=== PATIENT | male | born 1950 | race Caucasian/White ===

== ENCOUNTER → 2021-01-24 | Outpatient (CLI) | payer OTHER, MEDICARE ==
[~2021-01-24] MED LIST: ALLEGRA ALLERG180 MG PO; ATORVASTATIN CA80 MG PO; CIALIS5 MG PO; LEVEMIR FL100 UNIT/2 SUBQ; LISINOPRIL10 MG PO; METFORMIN HCL500 M3 PO; MIRALAX119 GM PO; NOVOLOG100 UNIT/2 SUBQ; PAIN RELIEF500 M1 PO; REPLENS6.7 GM PO; TRAZODONE HCL50 MG PO; VITAMIN D325 MC5 PO; ZINC50 M1 PO
[2021-01-24 12:44] LABS: ALBUMIN 3.7 g/dL (3.4-5.0); CREATININE 0.8 mg/dL (0.7-1.3); POTASSIUM 4.4 mmol/L (3.5-5.1)
[2021-01-24 12:48] LABS: URINE BILIRUBIN NEGATIVE (Negative); URINE BLOOD 1+ (Negative); URINE CLARITY CLEAR; URINE COLOR YELLOW; URINE GLUCOSE-RANDOM* TRACE (Negative); URINE KETONES NEGATIVE (Negative); URINE LEUKOCYTES-REFLEX NEGATIVE (Negative); URINE NITRITE-REFLEX NEGATIVE (Negative); URINE PROTEIN (DIPSTICK) NEGATIVE (Negative); URINE SPECIFIC GRAVITY <= 1.005 (1.005-1.035); URINE UROBILINOGEN 0.2 E.U./dl (0.2-1.0)
[2021-01-24 12:49] LABS: INR 1.05; PROTIME 11.4 Seconds (10.5-12.1)
[2021-01-24 12:59] LABS: CASTS None Seen /LPF (None Seen); HEMATOCRIT 38.9 % (42.0-52.0); HEMOGLOBIN 13.3 gm/dL (14.0-18.0); MCH 30.3 pg (26.0-34.0); MCHC 34.1 g/dL (28.0-37.0); MCV 88.7 fL (80.0-100.0); RBC 4.38 mil/uL (4.50-6.00); RDW 14.6 % (10.5-14.5); SQUAMOUS 0-3 Few /LPF (0-3); WBC 5.3 thou/uL (4.0-11.0)
[2021-01-24 13:00] LABS: URINE RBC 1-2 Rare /HPF (NONE SEEN); URINE WBC-REFLEX 0-5 Rare /HPF (0-5)
[2021-01-24 13:01] LABS: BACTERIA-REFLEX 1-9 Few /HPF (None Seen); CRYSTALS None Seen /LPF (None Seen)
--- NOTE | 2021-01-24 14:20 | EKG ---
[place] [address] [address] [employer] [facility] [place] [address] ELECTROCARDIOGRAM REPORT Name: IMMANUEL KAUR [facility]: [id number] Admission: 01/24/21 Attend Phys: Todd Bhagat MD Discharge: Date of : 48 Report #: [id number] [facility] Test Date: 2021-01-24 Test Time: 12:40:41 Pat Name: IMMANUEL KAUR Department: Room: Gender: M [employer]ing Machine Operator: Ana Maria TORRE : 1950 Requested By: Todd Bhagat Order Number: [id number] MD: John Peralta Measurements Intervals [place] Rate: 53 P: -17 [place]: 197 QRS: 6 QRSD: 131 T: -13 QT: 433 QTc: 407 Interpretive Statements Sinus rhythm Right bundle branch block No previous ECG available for comparison Electronically Signed On 01-24-2021 14:20:29 TRAIN CLERK by John Peralta [email or web address] <ELECTRONICALLY SIGNED> By: John Peralta MD, [facility] 01/24/21 1420 1240 1240 John Peralta MD, FACC /EPI
[2021-01-25 05:07] LABS: GLYCOHEMOGLOBIN (HGB A1C) 7.3 % (4.8-5.6)
== END ==
LOC: PAC 07:40
PROVIDERS: ATTEND Orthopaedic Surgery
DX: M17.11 Unilateral primary osteoarthritis, right knee (principal); E11.9 Type 2 diabetes mellitus without complications

== ENCOUNTER 2021-02-07 06:13 | Observation (INO) | payer OTHER, MEDICARE ==
[~2021-02-07] VITALS: Ht 177.8 cm; Wt 89.5 kg
[~2021-02-07 06:13] MED LIST changes: +FIBERCON CHEWA625 MG PO; -REPLENS6.7 GM PO
[2021-02-07 07:53] VITALS: BP 145/68
--- NOTE | 2021-02-07 16:52 | NUR ---
ASSUMED CARE OF PT AT 1130 THIS MORNING FROM PACU. PT HAD RT KNEE REPLACEMENT WITH NERVE BLOCK. DELORIS'S, SCD'S, POLAR WITH SUNG DRESSING IN PLACE. PT COMPLAINED OF ACHING PAIN IN THE BACK OF THE KNEE. PT IS A/OX4 AND HAS NO DEFICITS FOUND. RN PERFORMED PRIMARY ASSESSMENT AND BUILT THE PLAN OF CARE. FALL PRECAUTIONS ARE IN PLACE WITH CALL LIGHT AND OTHER NEEDS IN REACH. EVELYN CALDERON WORKED WITH PT AND STATED HE WILL BE ABLE TO GO HOME TOMORROW. MEDS AND TX GIVEN NEEDED AND SCHEDULED. WILL MONITOR AND NOTE ANY CHANGES.
[2021-02-07 19:50] VITALS: BP 146/73
--- NOTE | 2021-02-08 06:37 | NUR ---
Pt did well thro the noc. Walking to the bathroo, with roller walker.R knee with SUNG drsg as well as Polar carol.Good CSM to R foot. Progressing towards care goals.
[2021-02-08 07:45] VITALS: BP 150/75
[2021-02-08 11:44] VITALS: BP 150/75
--- NOTE | 2021-02-08 12:16 | NUR ---
RE-ASSUMED CARE OF PT AT 0700 THIS MORNING. PT IS A/OX4 AND IS READY TO LEAVE. PT WILL BE EVALUATED FOR RELEASE THIS MORNING BY EVELYN CALDERON. ASSESSMENTS NOTED IN CHART AND OTHERWISE UNREMARKABLE. FALL PRECAUTIONS ARE IN PLACE. CALL LIGHT AND OTHER NEEDS ARE IN REACH. MEDS AND TX GIVEN NEEDED AND SCHEDULED. WILL MONITOR AND NOTE ANY CHANGES. PT WAS EVAL BY EVELYN CALDERON AND IS CLEARED TO GO HOME. PT WAS GIVEN ORTHO EDUCATION PACKET AND DISCHARGE PAPERS. PT SIGNED DISCHARGE SHEET. PT WAS TAKEN TO POV AT MAIN ENTRANCE BY CRANE OILER.
--- NOTE | 2021-02-08 13:25 | NUR ---
Pt is s/p tkr. Dcing today to outpt therapy. Pt issued a rwalker per [facility]. Script given to the liason. No other needs indicated.
--- NOTE | 2021-02-09 11:58 | O ---
[facility] [place] [address] OPERATIVE REPORT Name: IMMANUEL KAUR Room #: 440-P [facility] Kim Henry#: [id number] Admission: 02/07/21 Attend Phys: Todd Bhagat MD Discharge: 02/08/21 Date of : 48 Report #: [id number] THIS REPORT FOR: cc: Shadia Selby Cassandra M. DO Abraham, Scott M. MD ~ DATE OF SERVICE: 02/07/2021 PREOPERATIVE DIAGNOSIS: Right knee osteoarthritis. POSTOPERATIVE DIAGNOSIS: Right knee osteoarthritis. PROCEDURE: Right total knee arthroplasty using Navio robotic assistance. SURGEON: Todd Bhagat MD SENIOR INSPECTOR: Leila Lind PA-C. INDICATION FOR SENIOR INSPECTOR: Throughout the case, extensive retraction, manipulation of the knee was required. This was afforded by my assistant operator. ANESTHESIA: LMA with adductor canal block. IMPLANTS: [employer] size 5 cobalt chrome Journey II BCS femur, size 6 tibia, size 10 polyethylene, size 35 patella. TOURNIQUET TIME: 53 minutes. ESTIMATED BLOOD LOSS: 25 mL. COMPLICATIONS: None. SPECIMENS: None. CONDITION UPON LEAVING THE OR: Stable. INDICATIONS FOR PROCEDURE: The patient is a 70-year-old gentleman with severe right knee osteoarthritis. He had failed conservative measures for this and after discussion with him, he elected for right total hip arthroplasty. DESCRIPTION OF PROCEDURE: Risks, benefits, alternatives, complications were discussed in detail with the patient including but not limited to risk of anesthesia, risk of damage to nerves, arteries, blood vessels, risk for infection, bleeding, risk for continued knee pain, need for reoperation. Informed consent was obtained from the patient. Right knee was appropriately marked in the preoperative holding area. IV Ancef was given for preoperative [facility] [address] [place] [address] OPERATIVE REPORT Name: IMMANUEL KAUR Room #: 440-P JOSE Henry#: [id number] Admission: 02/07/21 Attend Phys: Todd Bhagat MD Discharge: 02/08/21 Date of : 48 Report #: [id number] antibiotics. Adductor canal block was placed by anesthesia. He was brought to the operating room and placed in supine position on the operating table. LMA anesthesia was induced without complication. Tourniquet was placed on the right thigh. Right lower extremity was prepped and draped in normal sterile fashion. Timeout was performed properly identifying the patient and procedure as well as instrumentation and implants. All in the operating room in agreement. Right lower extremity was exsanguinated, tourniquet was inflated. Tourniquet time was 53 minutes. Standard midline approach to knee was made with #10 blade through the skin. Dissection was taken down sharply to the fascia and deep flaps were developed medially and laterally. Fresh #10 blade was used to make a medial parapatellar arthrotomy and the knee was inspected. There was severe tricompartmental osteoarthritis. ACL and PCL were removed sharply. Reference pins were placed in the femur and the tibia. The knee was digitally mapped using the [employer] robotic system. Intraoperative plan was made. We sized the size 5 femur, the size 6 tibia and a 10 spacer. After acceptance of the intraoperative plan, the distal femoral cut was made with Navio bur. Distal femoral cutting block was pinned in place and chamfer cuts were made. Attention was turned to the tibia. Remainder of the menisci removed with Bovie cautery. Tibial resection guide was pinned in place using Navio for placement and tibial resection was made. Flexion and extension gaps were checked and found to be tight medially and a medial release was performed taking down the medial tibial osteophyte. This balanced the knee well. Tibia was sized, found to be a size 6. A size 6 tibial trial was placed, pinned and punched. Size 5 femoral trial was placed and box cut was made. This was then trialed with a size 10 polyethylene. Size 10 polyethylene demonstrated 1-2 mm laxity medially and laterally throughout range of motion of the knee. A 9 mm of bone was resected from the posterior surface of the patella and a size 35 patellar trial button was placed. Knee was taken through range of motion, found to be stable, found to have good patellar tracking. Trial components were removed. Bone ends thoroughly irrigated with normal saline. Final size 6 tibia, size 5 Journey II BCS cobalt chrome femur and a size 35 patella were cemented in place using standard cementation techniques. While the cement cured, a periarticular injection consisting of morphine, ropivacaine, epinephrine, Toradol was placed around the knee joint capsule. After the cement cured, tourniquet was deflated. Hemostasis was obtained with Bovie cautery. Final size 10 polyethylene was placed. A gram of vancomycin was placed deep in the joint. Fascia was closed with 0 Vicryl. Skin was closed with 2-0 Vicryl, skin staple and a SUNG dressing was applied. The patient tolerated this procedure well and went to recovery room under care of anesthesia postoperatively. <ELECTRONICALLY SIGNED> By: Todd Bhagat MD 02/09/21 1158 [id number] Todd Bhagat MD /nt
== END 2021-02-08 12:18 | disposition home or self-care (01) ==
LOC: OR → TBA 06:17 → PRE 07:30 → OR 07:40 → PRE 08:20 → OR 08:25 → PRE 08:57 → OR 09:50 → PRE 10:58 → EDSTATUS 11:35 → 4S 12:23 → OR 12:24 → 4S 12:24 → OR 12:31 → PRE 12:43 → OR 12:44 → PRE 12:49 → OR 13:43 → PRE 14:37 → OR 15:40 → PRE 15:54 → OR 16:40 → 4S 02-08 12:18
PROVIDERS: ADMIT Orthopaedic Surgery; ATTEND Orthopaedic Surgery
DX: M17.11 Unilateral primary osteoarthritis, right knee (principal); Z20.822 Contact with and (suspected) exposure to COVID-19; Z79.82 Long term (current) use of aspirin; Z79.899 Other long term (current) drug therapy
CPT/HCPCS: 50010; 50101; 50415; 50954; 51130; 51225; 51412; 53000; 53078; 56527; 56528; 57095; 57103; 57110; 57127; 57179; 58239; 59024; 62110; 62900; 64039; 65060; 70005